=== PATIENT | female | born 1990 ===

== ENCOUNTER 2025-02-11 06:01 | Emergency (ER) | payer OTHER, SELFPAY ==
[2025-02-11 06:11] VITALS: BP 108/67; PULSE 58; RESP 20; TEMP 36.7; O2SAT 98; BMI 29.1
[2025-02-11 06:41] LABS: MANUAL DIFF FLAG NO
[2025-02-11 06:47] LABS: Hematocrit 32.8 % (37.0-47.0); Hemoglobin 11.9 g/dl (12.0-16.0); Imm Gran Abs Auto 0.02 X10*3/uL (0.00-0.03); Imm Gran Pct Auto 0.2 % (0.0-0.4); Lymphocytes Absolute Auto 1.6 X10*3/uL (1.2-4.9); Mean Corpuscular HGB Conc 36.3 g/dl (31.0-35.0); Mean Corpuscular Hemoglobin 26.1 pg (27.0-33.0); Mean Corpuscular Volume 71.9 fL (80.0-98.0); NRBC Abs Auto 0.000 X10*3/uL (0.0-0.012); NRBC Pct Auto 0.0 /100WBC (0.0-0.2); Platelet Count 273 X10*3/uL (160-400); Red Blood Count 4.56 X10*6/uL (4.20-5.50); White Blood Count 9.2 X10*3/uL (4.8-10.8)
--- NOTE | 2025-02-11 06:58 | PC.NURSE ---
Patient is a 34 yo female with no significant PMH who presents with vaginal bleeding since last Thursday which has increased and assoc RLQ abdominal pressure. Alert and oriented. Lungs clear bilat. Respirations even and non-labored. Abdomen soft with positive bowel sounds. No significant tenderness noted. Positive pedal pulses with no edema noted.
[2025-02-11 07:06] LABS: Appearance Urine Clear; Glucose Urine UA Negative (Negative); PH 5.5 (5.0-9.0); Specific Gravity - Urine 1.020 (1.005-1.025); UMIC TRIGGER UACC YES
[2025-02-11 07:12] LABS: Alanine Aminotransferase 12 U/L (0-31); Albumin Level 4.4 g/dL (3.5-5.0); Alkaline Phosphatase 53 U/L (39-117); Anion Gap 18 (12-20); Aspartate Amino Transferase 19 U/L (5-31); Blood Urea Nitrogen 13 mg/dL (9-16); Calcium 8.8 mg/dL (8.4-10.2); Carbon Dioxide 19 mmol/L (22-29); Chloride 104 mmol/L (96-108); Creatinine Clr Calc Pharmacy 110.0; Estimated Glomerular Filt Rate > 60; Lipase 23 U/L (8-78); Potassium 3.8 mmol/L (3.3-5.1); Sodium 137 mmol/L (135-145); Total Protein 7.1 g/dL (6.5-8.0)
[2025-02-11 07:20] LABS: UACC Culture Trigger YES
--- NOTE | 2025-02-11 07:43 | ED.FEMALEGU ---
HPI - Female Genitourinary General Chief complaint: Vaginal Bleeding Stated complaint: vaginal bleeding Time Seen by Provider: 02/11/25 07:16 Source: patient Mode of arrival: ambulatory Limitations: no limitations History of Present Illness ED Provider: [facility] Narrative: 34-year-old woman, presenting with dysfunctional uterine bleeding, usually she states she has very much normal cycle, however she began having spotting about a week ago and in the next 4 days developed what she describes as heavy bleeding but going through approximately 2 pads per day and this is outside of her normal cycle so this is worrisome to her. She started working out heavily around 3 months ago. 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 She has had intermittent mild right lower quadrant abdominal pain as well. Without nausea, vomiting fevers or chills. No hematuria, no dysuria no diarrhea Related Data Previous Rx's ?Medication ?Instructions ?Recorded medroxyprogesterone 10 mg tablet 10 mg PO TID 5 days #15 tabs 02/11/25 (Provera) Allergies Allergy/AdvReac Type Severity Reaction Status Date / Time No Known Allergies Allergy Verified 02/11/25 06:14 Review of Systems Constitutional: Constitutional: Reports as per [facility] Social History Social History Advance Directives: No Physical Exam Vital Signs: Vital Signs: Last Vital Signs Temp 98.1 F 02/11/25 06:11 Pulse 58 02/11/25 06:11 Resp 20 02/11/25 06:11 BP 108/67 02/11/25 06:11 Pulse Ox 98 02/11/25 06:11 O2 Del Method Room Air 02/11/25 06:11 BMI result Body Mass Index 29.1 Const: Other: Gen: ?Overall well-appearing patient Resp: ?No wheezing rales rhonchi no stridor moving air well Abd: ?Bowel sounds are present, minimal right lower quadrant tenderness no rebound no rigidity no guarding MSK: FROM, strength 5/5 all extremities Skin: Warm, dry, intact, Neuro: ?Alert and oriented x3, moving upper and lower extremities symmetrically, no obvious facial asymmetry noted Medical Decision Making Medical Decision Making [facility] Narrative: Considerations for workup as below, patient is primarily presenting with vaginal spotting and slightly heavier bleeding without any evidence for hemorrhage I deferred on examined I have explained to the patient why with the really contribute to my clinical management, patient is not , her DUB is quite minimal she is only going through 2 pads a day for the past 3 days and she is expecting to have her. Next week, however she also started exercising quite heavily and I feel that this maybe impact in her cycle, as far as her other plans such as right lower quadrant pain she states started last night not really associated with any nausea or vomiting fevers, her abdominal exam is quite benign and I suspect she may have a cyst and I did not feel that further imaging such as ultrasound or CAT scan is indicated to evaluate for either appendicitis or ovarian torsion as she has no leukocytosis no fevers and she is just quite comfortable in the exam but otherwise we will see my discharge instructions and return precautions Differential Diagnosis Differential Diagnoses: The differential diagnosis associated with the presentation includes (Dysfunctional uterine bleeding, ectopic , appendicitis, ovarian torsion, hemorrhagic cyst) Admission/Observation 2022 Emergency Medicine Coding Guide from Medical Referral Source on 02/11/2025 All calculations should be rechecked by clinician prior to use RESULT SUMMARY: 4 Estimated Level of Service Problems: Moderate (4) Risk: Moderate (4) Data: Minimal (2) NARRATIVE MDM: This patient's problem complexity is Moderate as patient: has a new undiagnosed problem with uncertain prognosis but that could be serious. This patient's risk is Moderate due to: overall presentation requiring evaluation for a potentially Moderate-risk process. This patient's data complexity is Minimal. INPUTS: Number and Complexity ?> 5 = 4: undiagnosed new problem, uncertain outcome (e) Risk level ?> 3 = Moderate Tests ordered ?> 1 = 1 Tests results reviewed (excluding labs) ?> 0 = 0 Prior external notes reviewed ?> 0 = 0 Assessment requiring and independent historian ?> 0 = No Independent interpretation of tests ?> 0 = No Discussed management/test interpretation w/external professional ?> 0 = No Lab Data [facility] Lab Attestation statement: I reviewed the patient's lab results. 02/11/25 06:38 02/11/25 06:38 Labs: Lab Results 02/11/25 02/11/25 Range/Units 06:38 06:54 WBC 9.2 (4.8-10.8) X10*3/uL RBC 4.56 (4.20-5.50) X10*6/uL Hgb 11.9 L (12.0-16.0) g/dl Hct 32.8 L (37.0-47.0) % MCV 71.9 L (80.0-98.0) fL MCH 26.1 L (27.0-33.0) pg MCHC 36.3 H (31.0-35.0) g/dl RDW 15.4 (11.0-16.0) % Plt Count 273 (160-400) X10*3/uL MPV 9.7 (9.4-12.3) fL Immature Gran % (Auto) 0.2 (0.0-0.4) % Neut % (Auto) 70.6 (45-73) % Lymph % (Auto) 17.6 L (20-40) % [place] % (Auto) 7.9 (2-11) % Eos % (Auto) 2.9 (0-4) % Baso % (Auto) 0.8 (0-2) % Lymph # (Auto) 1.6 (1.2-4.9) X10*3/uL [place] # (Auto) 0.7 (0.1-1.2) X10*3/uL Eos # (Auto) 0.3 (0.0-0.4) X10*3/uL Baso # (Auto) 0.1 (0.0-0.2) X10*3/uL Abs Immat Gran (auto) 0.02 (0.00-0.03) X10*3/uL Absolute Neuts (auto) 6.5 (2.0-8.3) x10*3/uL Absolute Nucleated RBC 0.000 (0.0-0.012) X10*3/uL Nucleated RBC % (auto) 0.0 (0.0-0.2) /100WBC Sodium 137 (135-145) mmol/L Potassium 3.8 (3.3-5.1) mmol/L Chloride 104 (96-108) mmol/L Carbon Dioxide 19 L (22-29) mmol/L Anion Gap 18 (12-20) BUN 13 (9-16) mg/dL Creatinine 0.75 (0.5-1.4) mg/dL Estim Creat Clear Calc 110.0 Estimated GFR > 60 Random Glucose 91 (60-115) mg/dL Calcium 8.8 (8.4-10.2) mg/dL Total Bilirubin 0.6 (0.0-1.0) mg/dL AST 19 (5-31) U/L ALT 12 (0-31) U/L Alkaline Phosphatase 53 (39-117) U/L Total Protein 7.1 (6.5-8.0) g/dL Albumin 4.4 (3.5-5.0) g/dL Lipase 23 (8-78) U/L Beta HCG, Quant < 2 mIU/mL Urine Color Yellow Urine Appearance Clear Urine pH 5.5 (5.0-9.0) Ur Specific [place] 1.020 (1.005-1.025) Urine Protein Trace (Neg-Trace) mg/dL Urine Glucose (UA) Negative (Negative) mg/dL Urine Ketones Negative (Negative) mg/dL Urine Blood Large (3+) H (Negative) Urine Nitrite Negative (Negative) Ur Leukocyte Esterase Small (1+) H (Negative) Urine RBC 3-5 H (0-2) /HPF Urine WBC 0-5 (0-5) /HPF Ur Squamous Epith Cells 3-5 (0-2) /HPF Urine Bacteria 3+ (None Seen) Hyaline Casts 0-2 (0-2) /LPF Discharge Plan Discharge Clinical Impression: Dysfunctional uterine bleeding, Abdominal pain, right lower quadrant Patient Disposition: Home, Self-Care Instructions: Pelvic Pain (ED), Abdominal Pain (ED) Additional Instructions: As discussed overall I am reassured by physical examination, the vital signs and your blood work, your anemia is extremely minimal and may even be your baseline, as we discussed with like you to follow up with the house decorator and if the bleeding gets is getting heavier in the next few days you can start taking Provera, 10 mg 3 times a day for the next 5 days, if that does not stop the bleeding and your feeling worse please come back to the ER for evaluation, as far as the pain that you mentioned in the right lower quadrant this is possibly a cyst that is forming on your ovary, your exam was fairly benign however if something else is evolving and the pain is getting worse and it is not better with ibuprofen 400 mg you can take every 6 hours a warm compress please come back to ER for re-evaluation at that point either ultrasound or CAT scan we will be obtained to evaluate for ovarian pathology or appendicitis which at least based on your initial examination I did not feel likely. Prescriptions: New medroxyprogesterone [Provera] 10 mg tablet 10 mg PO TID 5 Days Qty: 15 0RF Print Language: [place]
[2025-02-11 08:00] VITALS: BP 108/67; PULSE 58; RESP 20; TEMP 36.7; O2SAT 98
== END 2025-02-11 08:01 | disposition home or self-care (01) ==
PROVIDERS: Emergency Provider Emergency Medicine; PCP Internal Medicine
DX: N93.8 Other specified abnormal uterine and vaginal bleeding (principal); R10.31 Right lower quadrant pain; R10.2 Pelvic and perineal pain
CPT/HCPCS: 36415; 80053; 81001; 83690; 84702; 85025; 87086; 99282; 99283